=== PATIENT | male | born 2000 ===

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

== ENCOUNTER 2022-02-25 20:39 | Emergency (ER) | payer MEDICAID ==
[2022-02-25] MEDS ORDERED: SODIUM CHLORIDE 0.9% 1000 ML 1,000 ML IV ONE (21:00)
[2022-02-25] MEDS ORDERED: methylPREDNISolone Sod Succinate 125 MG/2 ML INJ IV ONE (21:00)
[2022-02-25] MEDS ORDERED: diphenhydrAMINE 50 MG/ML VIAL IV STA (21:00)
--- NOTE | 2022-02-25 21:03 | Emergency Department Report ---
ED Allergic Reaction HPI - General Chief complaint: Allergic Reaction Stated complaint: ALLERGIC REACTION Time Seen by Provider: 02/25/22 20:58 Source: patient Mode of arrival: Ambulatory Limitations: No Limitations - History of Present Illness Initial Comments: 21-year-old male patient of the local [facility] program reporting his new medication this morning around 7 AM and states around 7 PM he began feeling some itchiness to his throat and lips and thought he may be having allergic reaction. Reports no rash, no fevers, chills, sweats. No headaches, no nausea, no vomiting. Reports no headache. He reports no chest pain or palpitations with. He also had a strawberry drink states he had a drink several times in the past and does not feel it contributed to his symptoms as his symptoms were already present prior to him consuming that beverage. He reports no drooling and feels his tongue is normal. MD Complaint: allergic reaction -: Gradual, This morning (7am) Exposure: medication Symptoms: itching. denies: syncopy Severity: mild Treatment Prior to Arrival: none Previous Allergy History: none - Related Data Previous Rx's Medication Instructions Recorded Last Taken Type Ibuprofen [Motrin] 600 mg PO Q8H PRN #30 tablet 05/07/19 Unknown Rx cephALEXin [Keflex] 500 mg PO Q12HR #10 cap 05/07/19 Unknown Rx hydrOXYzine HCL [Atarax] 25 mg PO Q6HR PRN #20 tablet 02/25/22 Unknown Rx predniSONE [Deltasone] 50 mg PO QDAY #5 tab 02/25/22 Unknown Rx Allergies Allergy/AdvReac Type Severity Reaction Status Date / Time No Known Allergies Allergy Verified 05/07/19 15:41 ED Review of Systems ROS: Stated complaint: ALLERGIC REACTION Other details as noted in HPI Comment: All other systems reviewed and negative ED Past Medical Hx - Past Medical History Previous Medical History?: No - Surgical History Past Surgical History?: Yes Additional Surgical History: tonsilectomy and growth removed from ear - Social History Smoking Status: Never Smoker Substance Use Type: None - Medications Home Medications: Home Medications Medication Instructions Recorded Confirmed Last Taken Type Ibuprofen [Motrin] 600 mg PO Q8H PRN #30 tablet 05/07/19 Unknown Rx cephALEXin [Keflex] 500 mg PO Q12HR #10 cap 05/07/19 Unknown Rx hydrOXYzine HCL [Atarax] 25 mg PO Q6HR PRN #20 tablet 02/25/22 Unknown Rx predniSONE [Deltasone] 50 mg PO QDAY #5 tab 02/25/22 Unknown Rx ED Physical Exam - General Limitations: No Limitations General appearance: alert, in no apparent distress - Head Head exam: Present: atraumatic, normocephalic - Eye Eye exam: Present: normal appearance, PERRL, EOMI Pupils: Present: normal accommodation - ENT ENT exam: Present: normal exam, normal orophraynx, mucous membranes moist, TM's normal bilaterally, other (Normal voice no drooling.) - Neck Neck exam: Present: normal inspection, full ROM - Respiratory Respiratory exam: Present: normal lung sounds bilaterally. Absent: respiratory distress - Cardiovascular Cardiovascular Exam: Present: regular rate, normal rhythm. Absent: systolic murmur, diastolic murmur, rubs, gallop - GI/Abdominal GI/Abdominal exam: Present: soft, normal bowel sounds - Rectal Rectal exam: Present: deferred - Extremities Exam Extremities exam: Present: normal inspection, normal capillary refill - Back Exam Back exam: Present: normal inspection. Absent: CVA tenderness (R), CVA tenderness (L) - Neurological Exam Neurological exam: Present: alert, oriented X3, CN II-XII intact, normal gait - Psychiatric Psychiatric exam: Present: normal affect, normal mood. Absent: anxious, flat affect, manic - Skin Skin exam: Present: warm, dry, intact, normal color. Absent: rash, diaphoretic, erythema, urticaria, pallor, abrasion, ecchymosis ED Course Vital Signs 02/25/22 20:42 Temperature 98.6 F Pulse Rate 109 H Respiratory 18 Rate Blood Pressure 137/94 O2 Sat by Pulse 93 Oximetry ED Medical Decision Making - Medical Decision Making This patient presents with symptoms consistent with acute hypersensitivity reaction, likely acute allergic reaction. Presentation not consistent with acute anaphylaxis (lack of pulmonary, dermatologic, cardiovascular or GI symptoms, lack of hypotension or exposure to known allergen), angioedema, serum sickness(no recent drug exposure, lack of fevers, arthralgias), ingestion of preformed toxin. No evidence of airway compromise or shock at this time. Plan to treat for allergic reaction with H2/H1 blockers, steroids. No indication for epinephrine at this time. Plan Critical care attestation.: If time is entered above; I have spent that time in minutes in the direct care of this critically ill patient, excluding procedure time. ED Disposition Clinical Impression: Allergic reaction Disposition: 01 HOME / SELF CARE / HOMELESS Is pt being admited?: No Does the pt Need Aspirin: No Condition: Stable Instructions: Allergies, Adult Prescriptions: hydrOXYzine HCL [Atarax] 25 mg PO Q6HR PRN #20 tablet PRN Reason: Itching predniSONE [Deltasone] 50 mg PO QDAY #5 tab Referrals: [facility] [Provider Group] - 3-5 Days
[2022-02-25 23:05] VITALS: BP 132/87
== END 2022-02-25 23:21 | disposition home or self-care (01) ==
LOC: ED 20:39
DX: T78.49XA Other allergy, initial encounter (principal); Z98.890 Other specified postprocedural states; X58.XXXA Exposure to other specified factors, initial encounter
CPT/HCPCS: 96361; 96374; 96375; 99282; J1200; J2930; J7030

== ENCOUNTER 2022-02-26 07:31 | Emergency (ER) | payer MEDICAID ==
[2022-02-26] MEDS ORDERED: FAMOTIDINE 20 MG TAB PO ONE (10:31)
[2022-02-26] MEDS ORDERED: diphenhydrAMINE 25 MG CAP PO ONE (10:31)
[2022-02-26] MEDS ORDERED: predniSONE 20 MG TAB PO ONE (10:31)
--- NOTE | 2022-02-26 10:53 | Emergency Department Report ---
ED General Adult HPI - General Chief complaint: Dyspnea/Respdistress Stated complaint: MENTAL EVAL Source: patient Mode of arrival: Ambulatory Limitations: No Limitations - History of Present Illness Initial comments: Patient is a 21-year-old -Spanish male with a history of anxiety and depression and was currently in a psychiatric program, and who has been taking Zoloft 50 mg daily presented to the ED with complaint of tingling sensation in his time, and a feeling of shortness of breath and throat swelling after taking this medication for few days. Patient was initially evaluated and treated for the same about 24 hours ago and given prescriptions for allergic reaction and is yet to filler picker these prescriptions. Patient states that he has since stopped taking the Zoloft that was previously prescribed but he continues to experience intermittent tingling sensation in his tongue and mild sore throat and feels as if his throat is about to close. Patient denies dizziness, syncope, nausea and vomiting or diarrhea, abdominal pain, itching, hives or rashes, lightheadedness, headache, fever and chills or change in vision. MD Complaint: Allergic reaction to Zoloft -: Sudden, days(s) (2) Location: mouth Radiation: non-radiation Severity scale (0 -10): 0 Quality: dull Consistency: intermittent Improves with: none Worsens with: none Associated Symptoms: denies other symptoms. denies: confusion, chest pain, cough, diaphoresis, fever/chills, headaches, loss of appetite, malaise, nausea/vomiting, rash, seizure, shortness of breath, syncope, weakness Treatments Prior to Arrival: none - Related Data Previous Rx's Medication Instructions Recorded Last Taken Type Ibuprofen [Motrin] 600 mg PO Q8H PRN #30 tablet 05/07/19 Unknown Rx cephALEXin [Keflex] 500 mg PO Q12HR #10 cap 05/07/19 Unknown Rx hydrOXYzine HCL [Atarax] 25 mg PO Q6HR PRN #20 tablet 02/25/22 Unknown Rx predniSONE [Deltasone] 50 mg PO QDAY #5 tab 02/25/22 Unknown Rx Allergies Allergy/AdvReac Type Severity Reaction Status Date / Time No Known Allergies Allergy Verified 02/26/22 07:39 ED Review of Systems ROS: Stated complaint: MENTAL EVAL Other details as noted in HPI Constitutional: denies: chills, fever Eyes: denies: eye pain, eye discharge, vision change ENT: other (Tingling tongue, Sore throat, dysphonia a). denies: ear pain, throat pain Respiratory: denies: cough, shortness of breath, wheezing Cardiovascular: denies: chest pain, palpitations Endocrine: no symptoms reported Gastrointestinal: denies: abdominal pain, nausea, vomiting, diarrhea Genitourinary: denies: urgency, dysuria Musculoskeletal: denies: back pain, joint swelling, arthralgia Skin: denies: rash, lesions Neurological: denies: headache, weakness, paresthesias Psychiatric: anxiety, depression. denies: auditory hallucinations, visual hallucinations, homicidal thoughts, suicidal thoughts Hematological/Lymphatic: denies: easy bleeding, easy bruising ED Past Medical Hx - Past Medical History Hx Psychiatric Treatment: Yes (Anxiety and depression) - Surgical History Additional Surgical History: tonsilectomy and growth removed from ear - Social History Smoking Status: Never Smoker Substance Use Type: None - Medications Home Medications: Home Medications Medication Instructions Recorded Confirmed Last Taken Type Ibuprofen [Motrin] 600 mg PO Q8H PRN #30 tablet 05/07/19 Unknown Rx cephALEXin [Keflex] 500 mg PO Q12HR #10 cap 05/07/19 Unknown Rx hydrOXYzine HCL [Atarax] 25 mg PO Q6HR PRN #20 tablet 02/25/22 Unknown Rx predniSONE [Deltasone] 50 mg PO QDAY #5 tab 02/25/22 Unknown Rx ED Physical Exam - General Limitations: No Limitations General appearance: alert, in no apparent distress - Head Head exam: Present: atraumatic, normocephalic, normal inspection - Eye Eye exam: Present: normal appearance, PERRL, EOMI Pupils: Present: normal accommodation - ENT ENT exam: Present: normal exam, normal orophraynx, mucous membranes moist, TM's normal bilaterally, normal external ear exam - Neck Neck exam: Present: normal inspection, full ROM. Absent: tenderness - Respiratory Respiratory exam: Present: normal lung sounds bilaterally. Absent: respiratory distress, wheezes, rales, rhonchi, stridor, chest wall tenderness, accessory muscle use, decreased breath sounds - Cardiovascular Cardiovascular Exam: Present: regular rate, normal rhythm, normal heart sounds. Absent: systolic murmur, diastolic murmur, rubs, gallop - GI/Abdominal GI/Abdominal exam: Present: soft, normal bowel sounds. Absent: tenderness, guarding, rebound, hyperactive bowel sounds, hypoactive bowel sounds, organomegaly, mass - Extremities Exam Extremities exam: Present: normal inspection, full ROM, normal capillary refill. Absent: tenderness, pedal edema, joint swelling, calf tenderness - Back Exam Back exam: Present: normal inspection, full ROM. Absent: tenderness, CVA tenderness (R), CVA tenderness (L), muscle spasm, paraspinal tenderness, vertebral tenderness, rash noted - Neurological Exam Neurological exam: Present: alert, oriented X3, CN II-XII intact, normal gait, reflexes normal - Psychiatric Psychiatric exam: Present: normal affect, normal mood, anxious - Skin Skin exam: Present: warm, dry, intact, normal color. Absent: rash ED Course Vital Signs 02/26/22 07:33 Temperature 98.6 F Pulse Rate 77 Respiratory 16 Rate Blood Pressure 140/90 [Right] O2 Sat by Pulse 99 Oximetry ED Medical Decision Making - Medical Decision Making This is a 21-year-old -Spanish male with a history of anxiety and depression and was currently in a psychiatric program, and who has been taking Zoloft 50 mg daily presented to the ED with complaint of tingling sensation in his time, and a feeling of shortness of breath and throat swelling after taking this medication for few days. Patient was initially evaluated and treated for the same about 24 hours ago and given prescriptions for allergic reaction and is yet to filler picker these prescriptions. Patient states that he has since stopped taking the Zoloft that was previously prescribed but he continues to experience intermittent tingling sensation in his tongue and mild sore throat and feels as if his throat is about to close. In the ED, patient is alert and oriented x3 and is not in any distress. Patient was treated in the ED for suspected allergic reaction with oral prednisone, Benadryl and Pepcid and was discharged home and advised to filler picker the previously prescribed medications for acute allergic reaction. Patient was advised to follow-up with his psychiatrist in 5 to 7 days for reevaluation or return to the ED immediately if symptoms get worse - Differential Diagnosis Anxiety; allergic reaction; depression; Critical care attestation.: If time is entered above; I have spent that time in minutes in the direct care of this critically ill patient, excluding procedure time. ED Disposition Clinical Impression: Anxiety as acute reaction to exceptional stress, Mixed anxiety and depressive disorder Acute allergic reaction Qualifiers: Encounter type: subsequent encounter Qualified Code(s): T78.40XD - Allergy, unspecified, subsequent encounter Disposition: HOME / SELF CARE / HOMELESS Is pt being admited?: No Does the pt Need Aspirin: No Condition: Stable Instructions: Allergies, Adult, [id number], Generalized Anxiety Disorder, Adult Additional Instructions: Take the previously prescribed medications for allergic reaction. Follow-up with your primary care physician or psychiatrist in 5 to 7 days for reevaluation. Return to the ED immediately if symptoms get worse. Referrals: [facility] [Provider Group] - 3-5 Days Time of Disposition: 10:55 Print Language: DANISH
[2022-02-26 11:57] VITALS: BP 118/80
== END 2022-02-26 11:57 | disposition home or self-care (01) ==
LOC: ED 07:31
DX: T78.49XA Other allergy, initial encounter (principal); T43.221A Poisoning by selective serotonin reuptake inhibitors, accidental (unintentional), initial encounter; F41.8 Other specified anxiety disorders; F43.0 Acute stress reaction; F32.9 Major depressive disorder, single episode, unspecified; Z98.890 Other specified postprocedural states; Y92.89 Other specified places as the place of occurrence of the external cause
CPT/HCPCS: 99282

== ENCOUNTER 2022-03-03 19:36 | Emergency (ER) | payer MEDICAID ==
[2022-03-03 20:30] VITALS: BP 134/66
== END 2022-03-04 03:35 | disposition left against medical advice (07) ==
LOC: ED 19:36
DX: R45.851 Suicidal ideations (principal); Z53.21 Procedure and treatment not carried out due to patient leaving prior to being seen by health care provider